=== PATIENT | male | born 1950 | race Caucasian/White ===

== ENCOUNTER 2019-01-14 21:18 | Emergency (ER) | payer MEDICARE, OTHER ==
[~2019-01-14] VITALS: Ht 165.1 cm; Wt 77.6 kg
[2019-01-14 21:18] VITALS: BP 132/72
[~2019-01-14 21:18] MED LIST: *INS REG3 IJ; BENA5TAB15 PO; BLOO-129 IN; INSU100I4 SQ; INSU3INS6 SQ; LEVO500T75 PO
[2019-01-14] MEDS ORDERED: SILVER SULFADIAZINE CREAM 25 GM TUBE ONE (21:39)
[2019-01-14] MEDS ORDERED: SILVER SULFADIAZINE CREAM 25 GM TUBE TP ONE (22:00)
== END 2019-01-14 22:06 | disposition home or self-care (01) ==
LOC: ER 21:22
DX: T22.212A Burn of second degree of left forearm, initial encounter (principal); E11.9 Type 2 diabetes mellitus without complications; I10 Essential (primary) hypertension; F17.200 Nicotine dependence, unspecified, uncomplicated; Z79.4 Long term (current) use of insulin; X08.8XXA Exposure to other specified smoke, fire and flames, initial encounter; Y93.89 Activity, other specified; Y92.89 Other specified places as the place of occurrence of the external cause; Y99.8 Other external cause status
CPT/HCPCS: 82962-TC

== ENCOUNTER 2019-01-19 10:26 | Emergency (ER) | payer MEDICARE, OTHER ==
[~2019-01-19] VITALS: Ht 165.1 cm; Wt 77.6 kg
[2019-01-19 10:44] VITALS: BP 156/56
--- NOTE | 2019-01-19 10:50 | NUR ---
PATIENT ARRIVED AT UNIT, ACCOMPANIED BY . WITH C/O LOWER BACK PAIN STARTED THIS MORNING. PATIENT ACCOMPANIED TO BED. CONNECTED TO MONITOR.
[2019-01-19] MEDS ORDERED: ONDANSETRON HCL/PF - ER 4 MG/2 ML VIAL IV ONE (11:00)
[2019-01-19] MEDS ORDERED: MORPHINE SULFATE INJ 2 MG/ML DISP.SYRIN IV ONE (11:00)
[2019-01-19] MEDS ORDERED: ONDANSETRON HCL/PF 4 MG/2 ML VIAL ONE (11:22)
[2019-01-19] MEDS ORDERED: MORPHINE SULFATE INJ 4 MG/ML DISP.SYRIN ONE (11:23)
[2019-01-19 11:25] LABS: CALCIUM, SERUM 8.8 mg/dL (8.5-10.1); CREATININE 0.8 mg/dL (0.6-1.3); POTASSIUM 4.3 mmol/L (3.5-5.1)
--- NOTE | 2019-01-19 12:29 | NUR ---
IV removed. Catheter intact and site benign. Pressure and 4x4 applied to site. No bleeding noted.Patient discharged to home in stable condition. Written and verbal after care instructions given. Patient verbalizes understanding of instruction.
== END 2019-01-19 12:31 | disposition home or self-care (01) ==
LOC: ER 10:26
DX: M54.5 Low back pain (principal); I10 Essential (primary) hypertension; E11.9 Type 2 diabetes mellitus without complications; F17.200 Nicotine dependence, unspecified, uncomplicated; Z79.4 Long term (current) use of insulin
CPT/HCPCS: 36415; 80048; 96374; 96375; 99283; J2270; J2405 ×2

== ENCOUNTER 2024-02-02 07:54 | Inpatient (IN) | payer MEDICARE, OTHER ==
[~2024-02-02 07:54] MED LIST changes: +LEVO500T23 PO; -LEVO500T75 PO
[2024-02-02] MEDS ORDERED: VANCOMYCIN 1 GM VIAL ONE (10:34)
[2024-02-02] MEDS ORDERED: LIDOCAINE 2%-EPI 1:100,000 30 ML VIAL ONE (10:34)
[2024-02-02] MEDS ORDERED: dexaMETHasone SOD PHOSPHATE 2 ML ONE (10:34)
[2024-02-02] MEDS ORDERED: LABETALOL HCL IV 100MG VIAL ONE (11:59)
[2024-02-02 13:20] VITALS: BP 104/60; TEMP 98.1
[2024-02-02] MEDS ORDERED: HYDROMORPHONE 1 MG/1 ML DISP.SYRIN IV PRN (13:30)
[2024-02-02] MEDS ORDERED: IV NS 0.9% 1,000 ML IV PRN (13:30)
[2024-02-02] MEDS ORDERED: ONDANSETRON HCL/PF 4 MG/2 ML VIAL IV PRN (13:30)
[2024-02-02] MEDS ORDERED: ACETAMINOPHEN 325 MG TABLET PO PRN (13:30)
[2024-02-02 14:00] VITALS: BP 118/62; TEMP 98; O2SAT 97
[2024-02-02 15:00] VITALS: BP 133/67; TEMP 98; O2SAT 97
[2024-02-02] MEDS ORDERED: ROSU10TA2 PO (15:25)
[2024-02-02] MEDS ORDERED: TRIA60LO12 TP (15:25)
[2024-02-02] MEDS ORDERED: ALPR1TAB7 PO (15:25)
[2024-02-02] MEDS ORDERED: TAMS-12 PO (15:25)
[2024-02-02] MEDS ORDERED: DAPA10TA PO (15:25)
[2024-02-02] MEDS ORDERED: SILD20TA2 PO (15:25)
[2024-02-02] MEDS ORDERED: AMLO10TA4 PO (15:25)
[2024-02-02] MEDS ORDERED: ERGO500093 PO (15:25)
[2024-02-02] MEDS ORDERED: KETO15CR2 TP (15:25)
[2024-02-02] MEDS ORDERED: SODI88SP18 NS (15:25)
[2024-02-02] MEDS ORDERED: INSU200I4 SQ (15:25)
[2024-02-02] MEDS ORDERED: EDARBYCLOR PO (15:25)
[2024-02-02] MEDS ORDERED: HYDR-4077 PO (15:25)
[2024-02-02] MEDS ORDERED: FLUO15CR2 TP (15:25)
[2024-02-02] MEDS ORDERED: JANUMET XR PO (15:25)
[2024-02-02] MEDS ORDERED: SUMA50TA PO (15:25)
[2024-02-02] MEDS ORDERED: OMEP1PAC7 PO (15:25)
[2024-02-02] MEDS ORDERED: IBUP-1955 PO (15:25)
[2024-02-02] MEDS ORDERED: ESCI5TAB PO (15:25)
[2024-02-02] MEDS ORDERED: DICL100G26 TP (15:25)
[2024-02-02] MEDS ORDERED: RANO10005 PO (15:25)
[2024-02-02] MEDS ORDERED: ASPI-1169 PO (15:25)
[2024-02-02] MEDS ORDERED: TRAZ-182 PO (15:25)
[2024-02-02 16:00] VITALS: BP 123/64; TEMP 98.4; O2SAT 96
== END 2024-02-02 18:17 | disposition home or self-care (01) | DRG 497 ==
LOC: DS 07:54 → MED 13:38
PROVIDERS: ADMIT Dentist Oral and Maxillofacial Surgery; ATTEND Dentist Oral and Maxillofacial Surgery
PROC: 0N5R0ZZ Destruction of Maxilla, Open Approach (ICD-10-PCS; principal; 2024-02-02)
PROC: 0NPW04Z Removal of Internal Fixation Device from Facial Bone, Open Approach (ICD-10-PCS; 2024-02-02)
DX: T84.69XA Infection and inflammatory reaction due to internal fixation device of other site, initial encounter (principal); Y83.8 Other surgical procedures as the cause of abnormal reaction of the patient, or of later complication, without mention of misadventure at the time of the procedure; Y92.009 Unspecified place in unspecified non-institutional (private) residence as the place of occurrence of the external cause; K13.79 Other lesions of oral mucosa; M89.38 Hypertrophy of bone, other site; E11.9 Type 2 diabetes mellitus without complications
CPT/HCPCS: 82962-TC; 88305-TC; 88311-TC; A4338; G0378; J0461; J0690; J1100; J1171; J2704; J3370; J3490

== ENCOUNTER 2024-12-04 09:52 | Emergency (ER) | payer MEDICARE, OTHER ==
[~2024-12-04] VITALS: Ht 165.1 cm; Wt 86.2 kg
[~2024-12-04 09:52] MED LIST changes: -*INS REG3 IJ; +ALPR1TAB7 PO; +AMLO10TA4 PO; +ASPI-1169 PO; -BENA5TAB15 PO; -BLOO-129 IN; +DAPA10TA PO; +DICL100G26 TP; +EDARBYCLOR PO; +ERGO500093 PO; +ESCI5TAB PO; +FLUO15CR2 TP; +HYDR-4077 PO; +IBUP-1955 PO; -INSU100I4 SQ; +INSU200I4 SQ; -INSU3INS6 SQ; +JANUMET XR PO; +KETO15CR2 TP; -LEVO500T23 PO; +OMEP1PAC7 PO; +RANO10005 PO; +ROSU10TA2 PO; +SILD20TA2 PO; +SODI88SP18 NS; +SUMA50TA PO; +TAMS-12 PO; +TRAZ-182 PO; +TRIA60LO12 TP
[2024-12-04 10:11] VITALS: TEMP 98.3
[2024-12-04 10:29] LABS: PLATELET COUNT (AUTO) 251 K/uL (150-450); RED BLOOD CELL COUNT(AUTO) 4.54 MIL/uL (4.5-6.0); RED CELL DISTRIBUTION WIDTH 13.9 % (11.5-15.0); WHITE BLOOD COUNT (AUTO) 10.5 K/uL (4.3-11.0)
[2024-12-04 10:43] LABS: CALCIUM, SERUM 9.4 mg/dL (8.5-10.1); CREATININE 1.4 mg/dL (0.6-1.3); SODIUM SERUM 134 mmol/L (136-145); UREA NITROGEN, BLOOD 40 mg/dL (7-18)
[2024-12-04] MEDS ORDERED: ALBU18HF2 INH (12:33)
[2024-12-04 12:51] VITALS: BP 134/70; O2SAT 98
== END 2024-12-04 12:52 | disposition home or self-care (01) ==
LOC: ER 09:53
DX: J20.9 Acute bronchitis, unspecified (principal); R05.9 Cough, unspecified; R09.81 Nasal congestion; I10 Essential (primary) hypertension; E11.9 Type 2 diabetes mellitus without complications; F17.200 Nicotine dependence, unspecified, uncomplicated; Z79.4 Long term (current) use of insulin; Z79.82 Long term (current) use of aspirin; Z79.84 Long term (current) use of oral hypoglycemic drugs; Z79.899 Other long term (current) drug therapy
CPT/HCPCS: 36415; 71045-TC; 80048-TC; 85025-TC

== ENCOUNTER 2024-12-12 15:55 | Emergency (ER) | payer MEDICARE, OTHER ==
[~2024-12-12] VITALS: Ht 165.1 cm; Wt 81.6 kg
[~2024-12-12 15:55] MED LIST changes: +ALBU18HF2 INH
[2024-12-12] MEDS: IV NS 0.9% 1,000 ML BAG IV ONE (16:46)
[2024-12-12 16:56] LABS: PLATELET COUNT (AUTO) 342 K/uL (150-450); RED BLOOD CELL COUNT(AUTO) 4.33 MIL/uL (4.5-6.0); RED CELL DISTRIBUTION WIDTH 13.4 % (11.5-15.0); WHITE BLOOD COUNT (AUTO) 11.4 K/uL (4.3-11.0)
[2024-12-12 17:04] LABS: CALCIUM, SERUM 9.5 mg/dL (8.5-10.1); CREATININE 1.5 mg/dL (0.6-1.3); SODIUM SERUM 140 mmol/L (136-145); UREA NITROGEN, BLOOD 37 mg/dL (7-18)
[2024-12-12 17:17] LABS: ASPARTATE AMINOTRANSFERASE 22 U/L (15-37); NT-PRO BNP 88 pg/mL (0-125); TOTAL PROTEIN, SERUM 8.0 g/dL (6.4-8.2)
[2024-12-12 18:30] VITALS: BP 119/76; TEMP 98.4; O2SAT 97
== END 2024-12-12 18:38 | disposition home or self-care (01) ==
LOC: ER 16:22
DX: R52 Pain, unspecified (principal); I10 Essential (primary) hypertension; E11.9 Type 2 diabetes mellitus without complications; F17.200 Nicotine dependence, unspecified, uncomplicated; Z79.4 Long term (current) use of insulin; Z79.82 Long term (current) use of aspirin; Z79.84 Long term (current) use of oral hypoglycemic drugs; Z79.899 Other long term (current) drug therapy; Z20.822 Contact with and (suspected) exposure to COVID-19
CPT/HCPCS: 99285; 96360; 71045; 87426; 93005; 85025; 80048; 80076; 36415; 84484; 83880; J7030

== ENCOUNTER 2024-12-13 05:47 | Inpatient (IN) | payer MEDICARE, OTHER ==
[~2024-12-13] VITALS: Ht 167.6 cm; Wt 81.6 kg
[2024-12-13] MEDS: ASPIRIN 325 MG TABLET PO ONE (05:13)
[~2024-12-13 05:47] MED LIST changes: +ASPIRIN 325 MG TABLET ONE
[2024-12-13 06:27] LABS: PLATELET COUNT (AUTO) 363 K/uL (150-450); RED BLOOD CELL COUNT(AUTO) 4.53 MIL/uL (4.5-6.0); RED CELL DISTRIBUTION WIDTH 13.8 % (11.5-15.0); WHITE BLOOD COUNT (AUTO) 15.7 K/uL (4.3-11.0)
[2024-12-13 06:40] LABS: INR 1.12 (0.91-1.10)
[2024-12-13 06:42] LABS: CALCIUM, SERUM 9.3 mg/dL (8.5-10.1); CREATININE 1.3 mg/dL (0.6-1.3); SODIUM SERUM 135.0 mmol/L (136-145); UREA NITROGEN, BLOOD 30.0 mg/dL (7-18)
[2024-12-13 06:51] LABS: ASPARTATE AMINOTRANSFERASE 17.0 U/L (15-37); NT-PRO BNP 1001.0 pg/mL (0-125); TOTAL PROTEIN, SERUM 7.9 g/dL (6.4-8.2)
[2024-12-13] MEDS ORDERED: FUROSEMIDE 20 MG/2 ML VIAL ONE (07:15)
[2024-12-13] MEDS: FUROSEMIDE 20 MG/2 ML VIAL IV ONE (07:22)
[2024-12-13] MEDS ORDERED: Z GUARD REMEDY 4 OZ OINT TP PRN (08:00)
[2024-12-13] MEDS ORDERED: ACETAMINOPHEN 325 MG TABLET PO PRN (08:00)
[2024-12-13] MEDS ORDERED: MAGNESIUM HYDROXIDE 30 ML UDC PO PRN (08:00)
[2024-12-13] MEDS ORDERED: MAG HYDROX/AL HYDROX/SIMETH 30 ML UDC PO PRN (08:00)
[2024-12-13] MEDS ORDERED: ONDANSETRON HCL/PF 4 MG/2 ML VIAL IVP PRN (08:00)
[2024-12-13] MEDS ORDERED: DEXTROSE 50%-WATER 50 ML DISP.SYRIN IV PRN (08:00)
[2024-12-13] MEDS ORDERED: AMIODARONE 450 MG in IV D5W 250 ML IV PRN ×2 (08:30→12:00)
[2024-12-13] MEDS ORDERED: CEFTRIAXONE 1GM BAG (ER ONLY) 50 ML IV ONE (08:33)
[2024-12-13] MEDS: CEFTRIAXONE 1 G in IV D5W 50 ML IV SCH (08:52)
[2024-12-13] MEDS ORDERED: METOPROLOL TARTRATE 25 MG TABLET PO SCH (09:00)
[2024-12-13] MEDS: ALPRAZOLAM 1 MG TABLET PO SCH (09:57)
[2024-12-13] MEDS: AMLODIPINE BESYLATE 10 MG TABLET PO SCH (09:57)
[2024-12-13] MEDS: ASPIRIN 81 MG TAB.CHEW PO SCH (09:58)
[2024-12-13] MEDS: ATORVASTATIN 40 MG TABLET PO SCH (09:58)
[2024-12-13] MEDS: ESCITALOPRAM OXALATE (10 MG) 10 MG TABLET PO SCH (09:58)
[2024-12-13] MEDS: DAPAGLIFLOZIN PROPANEDIOL 10 MG TABLET PO SCH (09:58)
[2024-12-13] MEDS: APIXABAN 5 MG TABLET PO SCH (09:59)
[2024-12-13] MEDS: AMIODARONE 150 MG in IV D5W 100 ML IV ONE (11:31)
[2024-12-13 12:00] VITALS: BP 123/61; TEMP 97.8; O2SAT 97
[2024-12-13] MEDS: AMIODARONE 450 MG in IV D5W 241 ML IV PRN (12:16)
[2024-12-13] MEDS: BLOOD SUGAR DIAGNOSTIC 1 EACH STRIP VI SCH (12:50)
[2024-12-13] MEDS: INSULIN REGULAR, HUMAN 100 UNIT/ML 3 ML VIAL SQ PRN (12:53)
[2024-12-13] MEDS ORDERED: LEVALBUTEROL HCL NEB 1.25 MG/0.5 ML VIAL.NEB NEB PRN (14:30)
[2024-12-13 16:00] VITALS: BP 93/69; TEMP 98; O2SAT 97
[2024-12-13 18:17] LABS: APPEARANCE,URINE CLEAR (CLEAR); BLOOD, URINE NEGATIVE Ery/uL (NEGATIVE); LEUKOCYTE ESTERASE ,URINE NEGATIVE (NEGATIVE); NITRITE, URINE NEGATIVE (NEGATIVE); UGLUCOSE 3+ mg/dL (NEGATIVE)
[2024-12-13 18:28] LABS: CREATININE, URINE 77.5 MG/DL (30.0-125.0); URINE SODIUM, RANDOM 38.0 mmol/l (40-220); URINE TOTAL PROTEIN 14.8 mg/dL (0-11.9)
[2024-12-13 18:44] LABS: ADD URINE CULTURE NO
[2024-12-13 19:32] LABS: EOSINOPHIL,URINE None Seen
[2024-12-13 20:00] VITALS: BP 89/55; TEMP 97.5; O2SAT 94
[2024-12-13] MEDS: INSULIN GLARGINE, 100 UNIT/ML CARTRIDGE SQ SCH (22:07)
[2024-12-13] MEDS: TRAZODONE 50 MG TABLET PO SCH (22:24)
[2024-12-13] MEDS: TAMSULOSIN 0.4 MG CAP.SR.24H PO SCH (22:24)
[2024-12-14] VITALS: BP_SYST 90; BP_SYST 91; BP_DIAS 61; BP_DIAS 65; TEMP 97.8; O2SAT 98
[2024-12-14 04:00] VITALS: BP 98/69; TEMP 97.5; TEMP 97.8; O2SAT 96
[2024-12-14 08:00] VITALS: BP 111/64; TEMP 97.5; O2SAT 100
[2024-12-14] MEDS: PANTOPRAZOLE 40 MG TABLET.DR PO SCH (09:01)
[2024-12-14] MEDS: CEFTRIAXONE 1 G in IV D5W 50 ML IV SCH (09:04)
[2024-12-14] MEDS: DILTIAZEM HCL CD 240 MG PO SCH (09:05)
[2024-12-14 11:38] LABS: PLATELET COUNT (AUTO) 358 K/uL (150-450); RED BLOOD CELL COUNT(AUTO) 4.35 MIL/uL (4.5-6.0); RED CELL DISTRIBUTION WIDTH 13.6 % (11.5-15.0); WHITE BLOOD COUNT (AUTO) 12.3 K/uL (4.3-11.0)
[2024-12-14 11:53] LABS: ASPARTATE AMINOTRANSFERASE 16.0 U/L (15-37); CALCIUM, SERUM 8.8 mg/dL (8.5-10.1); CREATININE 1.5 mg/dL (0.6-1.3); PHOSPHORUS 4.2 mg/dL (2.5-4.9); SODIUM SERUM 133.0 mmol/L (136-145); TOTAL PROTEIN, SERUM 7.5 g/dL (6.4-8.2); UREA NITROGEN, BLOOD 38.0 mg/dL (7-18)
[2024-12-14 11:55] LABS: CREATINE KINASE, TOTAL 44.0 U/L (39-308); LDL 108.0 mg/dL (0-99)
[2024-12-14 12:00] VITALS: BP 100/66; TEMP 97.3; O2SAT 96
[2024-12-14 16:00] VITALS: BP 111/63; TEMP 97.3; O2SAT 96
[2024-12-14] MEDS: *INSULIN REGULAR(HUMULIN R)HUM 100 UNIT/ML VIAL SQ PRN (17:56)
[2024-12-14 20:00] VITALS: BP 100/58; TEMP 99; O2SAT 95
[2024-12-15] VITALS: BP 101/48; TEMP 97.3; O2SAT 95
[2024-12-15 04:00] VITALS: BP 101/48; TEMP 97.3; O2SAT 95
[2024-12-15 05:08] LABS: PTH, INTACT 13 pg/mL (15-65)
[2024-12-15 07:46] LABS: PLATELET COUNT (AUTO) 450 K/uL (150-450); RED BLOOD CELL COUNT(AUTO) 4.53 MIL/uL (4.5-6.0); RED CELL DISTRIBUTION WIDTH 13.6 % (11.5-15.0); WHITE BLOOD COUNT (AUTO) 13.2 K/uL (4.3-11.0)
[2024-12-15 07:56] LABS: CALCIUM, SERUM 9.3 mg/dL (8.5-10.1); CREATININE 1.5 mg/dL (0.6-1.3); PHOSPHORUS 5.0 mg/dL (2.5-4.9); SODIUM SERUM 138.0 mmol/L (136-145); UREA NITROGEN, BLOOD 47.0 mg/dL (7-18)
[2024-12-15 08:09] VITALS: BP 101/69; TEMP 98.2; O2SAT 94
[2024-12-15] MEDS ORDERED: DILT240C88 PO (11:37)
[2024-12-15] MEDS ORDERED: APIX5TAB PO (11:37)
[2024-12-15 12:10] VITALS: BP 111/65; TEMP 98.2; O2SAT 97
== END 2024-12-15 13:01 | disposition home or self-care (01) | DRG 309 ==
LOC: ER 05:47 → TELE1 07:08 → TELE-TD 19:19 → TELE1 12-14 09:37
PROVIDERS: ADMIT Nurse Practitioner Acute Care; ATTEND Nurse Practitioner Acute Care
DX: I48.92 Unspecified atrial flutter (principal); N17.9 Acute kidney failure, unspecified; E11.65 Type 2 diabetes mellitus with hyperglycemia; I25.10 Atherosclerotic heart disease of native coronary artery without angina pectoris; E78.5 Hyperlipidemia, unspecified; J45.909 Unspecified asthma, uncomplicated; Z79.4 Long term (current) use of insulin; Z79.84 Long term (current) use of oral hypoglycemic drugs; D72.829 Elevated white blood cell count, unspecified; F17.210 Nicotine dependence, cigarettes, uncomplicated; F41.9 Anxiety disorder, unspecified; Z71.6 Tobacco abuse counseling; I10 Essential (primary) hypertension; I95.9 Hypotension, unspecified; I35.8 Other nonrheumatic aortic valve disorders; I34.0 Nonrheumatic mitral (valve) insufficiency; N13.9 Obstructive and reflux uropathy, unspecified; N40.1 Benign prostatic hyperplasia with lower urinary tract symptoms; T39.395A Adverse effect of other nonsteroidal anti-inflammatory drugs [NSAID], initial encounter; Y92.009 Unspecified place in unspecified non-institutional (private) residence as the place of occurrence of the external cause
CPT/HCPCS: 36415; 71045-TC; 76770-TC; 80048-TC; 80053-TC; 80061-TC; 80076-TC; 81001; 82550-TC; 82570-TC; 82962-TC; 83735-TC; 83880; 83970; 84100-TC; 84155; 84165; 84300-TC; 84484-TC; 85025-TC; 85730-TC; 87040-TC; 87086-TC; 93307-TC; A4223; G0378; J0282; J0696; J1815; J1938; J7050; J7060